=== PATIENT | female | born 1950 | race Caucasian/White ===

== ENCOUNTER → 2017-07-05 | Outpatient (CLI) | payer MEDICARE, BC ==
[~2017-07-05] MED LIST: ALDACTONE100 MG PO; ALPRAZOLAM0.5 MG PO; C-10001000 M1 PO; CALCIUM 600 +1 EAC5 PO; CLOTRIMAZOLE15 GM TOP; COLACE PO; CORGARD20 MG PO; EC-NAPROSYN500 MG PO; FEMARA2.5 MG PO; FLEXERIL10 M1 PO; GLUCOPHAGE500 MG PO; GLUCOSAMINE CHOND; KCL PO; LASIX PO; METFORMIN PO; NABUMETONE PO; OMEPRAZOLE40 MG PO; PRILOSEC40 MG PO; TAMOXIFEN CITRA20 MG PO; VOLTAREN75 MG PO; ZOCOR PO; [UNRECOGNIZED DRUG - OTHER]
--- NOTE | ~2017-07-05 | MR113 ---
[facility] A Service of [facility] / [facility] RADIOLOGY TEXT RESULTS PATIENT: KRUNAL DANIELS LOCATION: [facility] : 52 UNIT #: [id number] AGE: [address]: Carlos Moss MD SEX: F ORDER DR: [id number] [address] [address] [id number] O MR#: [id number] Acc #: [id number] NAME: KRUNAL DANIELS. : 1950 SEX: F STUDY DATE/TIME: 07/05/2017 9:36 UNIT: [facility] ROOM: STUDY DESCRIPTION: MR Lumbar Wo Contrast Attending Physician: Carlos Moss M.D. Referring Physician: Carlos Moss M.D. Ordering Physician: Carlos Moss M.D. Primary Care Physician: Mariluz Martin M.D. MRI CENTER REPORT This report is preliminary unless electronic signature is present. EXAM MRI of the lumbar spine without contrast dated 07/05/2017 COMPARISON Plain films lumbar spine dated 02/09/2013 HISTORY Low back pain with right greater than left knee pain for about 5 months. History of breast cancer on the left. FINDINGS Multisequence multiplanar imaging of the lumbar spine was obtained without contrast. Vertebral body heights are preserved. Edematous endplate changes are noted at L4-5 and to a lesser degree at L5-S1. There is also edema seen in the right L5 pedicle without any fracture line. Adjacent facet hypertrophic changes are noted in right L4-5 and L5-S1 facet joints. Degenerative disc disease is at multiple levels. There is minimal retrolisthesis of L4 with respect to L3. Probably degenerative. Conus terminates at T12-L1. Signal of conus and cauda equina are within normal limits. Pre and paravertebral soft tissues do not demonstrate any significant abnormality. L1-2: Mild degenerative disc signal loss but otherwise unremarkable. L2-3: Concentric disc bulge with mild bilateral facet changes. Borderline size to mild canal stenosis and mild inferior bilateral neural foraminal narrowing. L3-4: Concentric disc bulge with bilateral foraminal to extraforaminal broad-based protrusions, worse on the right. Mild left and moderate right neural foraminal narrowing are noted. Severe bilateral facet hypertrophic changes and ligamentum flavum thickening cause severe canal stenosis. [facility]. [facility] A Service of [facility] / [facility] RADIOLOGY TEXT RESULTS PATIENT: KRUNAL DANIELS LOCATION: [facility] : 52 UNIT #: [id number] AGE: [address]: Carlos Moss MD SEX: F ORDER DR: L4-5: Moderate disc osteophyte complex with mild left and mild to moderate right facet hypertrophic change. Bilateral ligamentum flavum thickening is seen with very severe canal stenosis. Moderate bilateral lateral recess stenosis is seen with [id number] bilateral neural foraminal narrowing. L5-S1: Concentric disc bulge which is asymmetrically prominent in the left foraminal to extraforaminal region suggestive of superimposed broad-based protrusion. Moderate right and mild left facet hypertrophic change is noted with moderate left and mild inferior right neural foraminal narrowing. IMPRESSION 1. Degenerative changes are noted at multiple levels, worse at L4-5 followed by 3-4. 2. Severe canal stenosis is seen at L4-5 with bilateral neural foraminal narrowing and lateral recess stenosis. 3. Edematous endplate changes are noted at L4-5 and to a lesser degree at L5-S1. There also is mild edema associated with the left L5 pedicle along its lateral aspect close to the articulating process. Facet hypertrophic changes are noted in right L4-5 and L5-S1 joints and it could be related to inflammatory change. No obvious fracture is seen. Mild stress injury is in the differential consideration also. Dictated by... Alia Barker M.D. THIS IS AN ELECTRONICALLY VERIFIED REPORT Alia Barker M.D. at 07/09/2017 4:12 PM LULA/lamar TD: 07/06/2017 12:17 JOB #: [id number] MRI CENTER REPORT Page 1 of 1
== END | disposition home or self-care (01) ==
LOC: SMRI 09:23
DX: M51.26 Other intervertebral disc displacement, lumbar region (principal); M48.06 Spinal stenosis, lumbar region; M47.896 Other spondylosis, lumbar region; M99.83 Other biomechanical lesions of lumbar region; R60.0 Localized edema
CPT/HCPCS: 72148